=== PATIENT | female | born 1975 | race Caucasian/White ===

== ENCOUNTER 2020-05-03 19:40 | Emergency (ER) | payer BC, SELFPAY ==
--- NOTE | ~2020-05-03 | XR_ITS ---
EXAMINATION: XR chest 1V portable INDICATION: Weakness and headache TECHNIQUE: Portable AP chest at 2019 hours COMPARISON: None available FINDINGS: The lungs are free of acute opacities. There is no pleural effusion or pneumothorax. The ca rdiomediastinal silhouette is normal. IMPRESSION: 1. No acute cardiopulmonary abnormality. Reviewed, dictated and finalized at location A. ONAL DIRECTOR OF ADMISSIONS
[2020-05-03 19:42] VITALS: BP 166/99; PULSE 131; RESP 16; TEMP 36.7; O2SAT 98
--- NOTE | 2020-05-03 19:52 | ECG_ITS ---
Measurements Intervals [place] Rate: 112 P: 60 NV: 149 QRS: 74 QRSD: 77 T: 36 QT: 290 QTc: 397 Interpretive Statements SINUS TACHYCARDIA BASELINE WANDER- V4-V6 ABNORMAL ECG Electronically Signed On 05-04-2020 7:13:47 [employer] by Mello Esparza D.O.
[2020-05-03 20:00] VITALS: PULSE 113
--- NOTE | 2020-05-03 20:08 | ED.GENADULT ---
HPI - General Adult General Chief complaint: Unspecified Stated complaint: palpations, dizzy Time Seen by Provider: 05/03/20 19:53 Source: patient Mode of arrival: ambulatory Limitations: no limitations History of Present Illness HPI narrative: This patient is 44 year old healthy female who presents for evaluation of heart racing and dizziness. She states for the past 4-5 days she has not felt well. She reports intermittent episodes of lightheadedness. This occurs randomly and she states she even feels it while laying down some times. She describes its as fainty . She also reports episodes of heart racing and pounds. She states 5 days ago she had intermittent cramping and diarrhea. She reports her abdominal cramping has resolved. She denies chest pain, cough, sob. She denies fever, chills, body aches or headache. She was evaluated at [facility] ER 2 days ago. She states she was given IVF for dehydration. She had labs performed and she was told they were normal. She has an appointment scheduled with her PCP in 1 week. Onset (ago): day(s) (5) Related Data Allergies Allergy/AdvReac Type Severity Reaction Status Date / Time metoclopramide [From Reglan] AdvReac Irritable Verified 05/03/20 19:55 Review of Systems Review of Systems: All systems reviewed & are unremarkable except as noted in HPI and below Constitutional: Constitutional: Denies chills and Denies fever(s) Cardiovascular: Cardiovascular: Denies chest pain at rest, Denies chest pain with activity, Reports rapid heart rate and Denies leg edema Respiratory: Respiratory: Denies cough and Denies pain on inspiration Gastrointestinal: Gastrointestinal: Reports abdominal pain and Reports diarrhea Psychiatric: Psychiatric: Reports anxiety PMFSH Past Medical History Medical History (Updated 05/04/20 @ 00:04 by Saray Parrish MD) Patient denies medical problems Surgical History Surgical History (Updated 05/04/20 @ 00:04 by Saray Parrish MD) H/O section Social History Social History (Updated 05/04/20 @ 00:04 by Saray Parrish MD) Smoking status: Never smoker Substance use: never Exam Narrative: Exam Narrative: GENERAL: Well-appearing, well-nourished, and in no acute distress. HEAD: Normocephalic, atraumatic EYES: PERRLA and EOMI, conjunctiva clear without discharge EARS: TM's clear bilaterally without erythema or dullness NOSE: Nares clear, no rhinorrhea or epistaxis THROAT:Mucous membranes moist, Oropharynx normal without erythema, exudate, peritonsillar swelling or fluctuance NECK: Supple, without lymphadenopathy or mass RESPIRATORY: No respiratory distress, Airway patent, Respirations non-labored, Clear to auscultation without rales, rhonchi or wheeze HEART: Regular rate and rhythm. No murmur heard. Normal peripheral pulses. ABDOMEN: Soft, nontender, nondistended, normal active bowel sounds. No masses. No rebound or guarding, No organomegaly. EXTREMITIES: No edema, normal strength with full range of motion. SKIN: Warm, dry, normal color without rash NEURO: Alert and oriented x3. CN 2-12 grossly intact. No focal deficits. PSYCH: Normal mood and affect. Course Reevaluation(s) Reevaluation #1: I Discussed with patient that labs are unremarkable. Her hr increasing with position but other gill not orthostatic. I discussed with patient follow up/discharge plan with PCP. She is also concerned about about if her symptoms could be covid. She reports a friend has similar symptoms. Date: 05/03/20 Time: 22:15 Vital Signs Vital signs: Vital Signs Temperature 98.0 F 05/03/20 19:42 Pulse Rate 131 H 05/03/20 19:42 Respiratory Rate 16 05/03/20 19:42 Blood Pressure 166/99 H 05/03/20 19:42 Pulse Oximetry 98 05/03/20 19:42 Temperature 98.0 F 05/03/20 19:42 Pulse Rate 104 H 05/03/20 22:40 Respiratory Rate 12 05/03/20 22:40 Blood Pressure 143/78 H 05/03/20 22:40 Pulse Oximetry 100
[2020-05-03] MEDS: LACTATED RINGERS 1,000 ML 999 ML IV CONT ×2 (20:34→21:58)
[2020-05-03 20:41] LABS: Basophils Absolute Auto 0.1 K/mm3 (0.0-0.1); Basophils Percent Auto 0.7 % (0.2-1.2); Eosinophils Absolute Auto 0.1 K/mm3 (0-0.3); Eosinophils Percent Auto 1.9 % (0-4.4); Hematocrit 40.2 % (37.0-47.0); Hemoglobin 13.9 g/dL (12.0-15.0); Immature Granulocyte Absolute 0.02 K/mm3 (0.00-0.031); Immature Granulocyte Percent A 0.3 % (0-0.5); Lymphocytes Absolute Auto 1.81 K/mm3 (0.9-3.2); Lymphocytes Percent Auto 25.9 % (18.3-44.2); Mean Corpuscular HGB Conc 34.6 g/dl (32-36); Mean Corpuscular Hemoglobin 32.3 pg (26-34); Mean Corpuscular Volume 93.3 fl (80-100); Mean Platelet Volume 10.4 fl (7.4-10.4); Monocytes Absolute Auto 0.6 K/mm3 (0.1-0.6); Neutrophils Absolute Auto 4.3 K/mm3 (1.3-6.7); Neutrophils Percent Auto 62.2 % (45.5-73.1); Platelet Count Result 208 k/mm3 (150-375); Red Blood Count 4.31 M/mm3 (4.2-5.4); Red Cell Distribution Width 11.5 % (11.5-14.5)
[2020-05-03 20:45] LABS: Add Urine Microscopic? YES; Appearance Urine Cloudy (Clear); Bacteria Urine Trace /hpf; Bilirubin Urine Negative (Negative); Blood Urine 1+ (Negative); Color Urine Yellow (Yellow); Glucose Urine UA Negative (Negative); Ketones Urine Negative (Negative); Leukocyte Esterase Ur Negative LEU/UL (Negative); Mucus Urine Rare /lpf; Nitrate Urine Negative (Negative); Protein Urine Negative (Negative); Specific Grav Ur 1.021 (1.001-1.035); Squamous Epithelial Cell Urine Moderate /hpf (Few); Urobilinogen Urine Negative mg/dL (<2.0); WBC Urine 0-3 /hpf
[2020-05-03 20:50] LABS: INR 0.9; Partial Thromboplastin Time 26.9 SECONDS (22.3-36.8); Prothrombin Time 12.7 Seconds (11.1-14.7)
[2020-05-03 20:52] LABS: Lactic Acid Reflex 0.9 mmol/L (0.7-2.1)
[2020-05-03 20:53] LABS: Lipase 112 U/L (23-300); Magnesium 1.9 mg/dL (1.6-2.3)
[2020-05-03 20:56] LABS: Alanine Aminotransferase 24 U/L (4-35); Albumin Level 4.2 g/dL (3.5-5.1); Alkaline Phosphatase 63 U/L (38-126); Anion Gap 4 mmol/L (8-16); Aspartate Amino Transferase 24 U/L (14-36); Bilirubin,Total 0.4 mg/dL (0.2-1.3); Blood Urea Nitrogen 6 mg/dL (7-17); CRP < 0.5 mg/dL (<1.0); Calcium 9.1 mg/dL (8.4-10.2); Carbon Dioxide 24 mmol/L (22-30); Chloride 107 mmol/L (98-107); Estimated CRCL calculation 109 ml/min; Estimated Glomerular Filt Rate > 60; Glucose 104 mg/dL (65-105); Potassium 3.7 mmol/L (3.4-5.0); Sodium 135 mmol/L (137-145)
[2020-05-03 20:59] LABS: D Dimer 0.27 ug/mL (<0.48)
[2020-05-03 21:05] LABS: Troponin I < 0.012 ng/mL (0.000-0.034)
[2020-05-03 21:15] VITALS: BP 140/88; BP 148/89; PULSE 101; PULSE 90
[2020-05-03 21:17] VITALS: BP 147/92; PULSE 107
[2020-05-03 22:22] VITALS: BP 136/84; PULSE 88; RESP 17; O2SAT 100
[2020-05-03 22:40] VITALS: BP 143/78; PULSE 104; RESP 12; O2SAT 100
[2020-05-05 01:27] LABS: SARS-CoV-2 RNA PCR Negative
== END 2020-05-03 22:40 | disposition home or self-care (01) ==
PROVIDERS: Emergency Provider General Practice
DX: R42 Dizziness and giddiness (principal); Z20.822 Contact with and (suspected) exposure to COVID-19; R00.0 Tachycardia, unspecified
CPT/HCPCS: 36415; 71045; 80053; 81001; 81025; 83605; 83690; 83735; 84484; 85025; 85380; 85610; 85730; 86140; 93005; 96360; 96361; 99284; C9803; J7120; U0003; U0005

== ENCOUNTER 2021-05-06 18:59 | Emergency (ER) | payer BC, SELFPAY ==
--- NOTE | ~2021-05-06 | CT_ITS ---
EXAMINATION: CT brain wo con INDICATION: Headache, lightheadedness COMPARISON: None TECHNIQUE: Standard unenhanced head CT. The dose-length product (DLP) was 605.33 mGy-cm. The mA was a djusted according to patient size. Iterative reconstruction technique was employed. FINDINGS: There is no intracranial hemorrhage, acute infarction, or abnormal mass lesion. The ventric les are normal. There is no abnormal mass effect or midline shift. The curry-white matter differentiat ion is normal. The basal cisterns are patent. The orbits are normal. The paranasal sinuses, mastoids and calvarium are normal. IMPRESSION: 1. No acute intracranial abnormality. Reviewed, dictated and finalized at location F. [employer]CH PROGRAM MANAGER
[2021-05-06 19:02] VITALS: BP 154/76; PULSE 120; RESP 14; TEMP 36.7; O2SAT 100
--- NOTE | 2021-05-06 19:40 | ED.GENADULT ---
HPI - General Adult General Chief complaint: Headache Stated complaint: lightheaded and headache Time Seen by Provider: 05/06/21 19:25 History of Present Illness HPI narrative: Patient 45-year-old female presents the emergency department with chief complaint of not feeling well. Patient reports that she started having a headache several days ago and has had a lightheaded uncomfortable feeling. The patient states is worse whenever she turns her head from side to side reports that she feels as though she may be dehydrated. Patient states that she has no other medical conditions. Patient reports that she has been vaccinated and has been boosted for COVID-19. Related Data Allergies Allergy/AdvReac Type Severity Reaction Status Date / Time metoclopramide [From Reglan] AdvReac Irritable Verified 05/03/20 19:55 Review of Systems Review of Systems: A 10 system review of systems was completed on the patient and is negative except for what is stated in the HPI. Nursing and ancillary documentation was reviewed. PMFSH Past Medical History Medical History Patient denies medical problems Surgical History Surgical History H/O section Social History Social History Smoking status: Never smoker Substance use: never Exam Narrative: GENERAL: Well-appearing, well-nourished, and in no acute distress. HEAD: Normocephalic, atraumatic. EYES: PERRLA and EOMI. ENT: Nares clear, no rhinorrhea or epistaxis. Mucous membranes moist. NECK: Supple. CHEST: Clear to auscultation. No respiratory distress. HEART: Regular rate and rhythm. No murmur heard. Normal peripheral pulses. ABDOMEN: Soft, nontender, nondistended, normal active bowel sounds. EXTREMITIES: Normal range of motion. No edema. SKIN: Warm, dry, no rash. NEURO: No focal deficits. Alert and oriented x3. PSYCH: Normal mood and affect. Course Vital Signs Vital signs: Vital Signs Temperature 36.7 C 05/06/21 19:02 Pulse Rate 120 H 05/06/21 19:02 Respiratory Rate 14 05/06/21 19:02 Blood Pressure 154/76 H 05/06/21 19:02 Pulse Oximetry 100 05/06/21 19:02 Temperature 36.7 C 05/06/21 19:02 Pulse Rate 120 H 05/06/21 19:02 Respiratory Rate 14 05/06/21 19:02 Blood Pressure 154/76 H 05/06/21 19:02 Pulse Oximetry 100 05/06/21 19:02 Medical Decision Making Vital Signs Vital Signs: Vital Signs Temperature 36.7 C 05/06/21 19:02 Pulse Rate 120 H 05/06/21 19:02 Respiratory Rate 14 05/06/21 19:02 Blood Pressure 154/76 H 05/06/21 19:02 Pulse Oximetry 100 05/06/21 19:02 Temperature 36.7 C 05/06/21 19:02 Pulse Rate 120 H 05/06/21 19:02 Respiratory Rate 14 05/06/21 19:02 Blood Pressure 154/76 H 05/06/21 19:02 Pulse Oximetry 100 05/06/21 19:02 Lab Data Result diagrams: 05/06/21 20:04 05/06/21 20:04 Labs: Lab Results 05/06/21 05/06/21 05/06/21 Range/Units 20:04 20:04 20:16 WBC 8.9 (4.5-10.0) K/mm3 RBC 4.43 (4.2-5.4) M/mm3 Hgb 14.4 (12.0-15.0) g/dL Hct 40.3 (37.0-47.0) % MCV 91.0 (80-100) fl MCH 32.5 (26-34) pg MCHC 35.7 (32-36) g/dl RDW 11.5 (11.5-14.5) % Plt Count 273 (150-375) k/mm3 MPV 10.3 (7.4-10.4) fl Immature Gran % (Auto) 0.1 (0-0.5) % Neut % (Auto) 58.6 (45.5-73.1) % Lymph % (Auto) 29.6 (18.3-44.2) % [place] % (Auto) 7.3 (2.6-8.5) % Eos % (Auto) 3.7 (0-4.4) % Baso % (Auto) 0.7 (0.2-1.2) % Lymph # (Auto) 2.64 (0.9-3.2) K/mm3 [place] # (Auto) 0.7 H (0.1-0.6) K/mm3 Eos # (Auto) 0.3 (0-0.3) K/mm3 Baso # (Auto) 0.1 (0.0-0.1) K/mm3 Abs Immat Gran (auto) 0.01 (0.00-0.031) K/mm3 Absolute Neuts (auto) 5.2 (1.3-6.7) K/mm3 Absolute Nucleated RBC 0.0 (0.0-0.012) K/mm3 Nucleat
[2021-05-06] MEDS: SODIUM CHLORIDE 0.9% IV 1,000 ML 999 ML IV CONT ×2 (20:09→21:44)
[2021-05-06] MEDS: diphenhydrAMINE HCl INJ 50 MG/ML VIAL IV PUSH (20:10)
[2021-05-06] MEDS: PROCHLORPERAZINE EDISYLATE 10 MG/2 ML VIAL IV PUSH (20:10)
[2021-05-06] MEDS: SODIUM CHLORIDE 0.9% IV 100 ML 500 ML (20:11)
[2021-05-06 20:27] LABS: Basophils Absolute Auto 0.1 K/mm3 (0.0-0.1); Basophils Percent Auto 0.7 % (0.2-1.2); Eosinophils Absolute Auto 0.3 K/mm3 (0-0.3); Eosinophils Percent Auto 3.7 % (0-4.4); Hematocrit 40.3 % (37.0-47.0); Hemoglobin 14.4 g/dL (12.0-15.0); Immature Granulocyte Absolute 0.01 K/mm3 (0.00-0.031); Immature Granulocyte Percent A 0.1 % (0-0.5); Lymphocytes Absolute Auto 2.64 K/mm3 (0.9-3.2); Lymphocytes Percent Auto 29.6 % (18.3-44.2); Mean Corpuscular HGB Conc 35.7 g/dl (32-36); Mean Corpuscular Hemoglobin 32.5 pg (26-34); Mean Platelet Volume 10.3 fl (7.4-10.4); Monocytes Absolute Auto 0.7 K/mm3 (0.1-0.6); Monocytes Percent Auto 7.3 % (2.6-8.5); Neutrophils Absolute Auto 5.2 K/mm3 (1.3-6.7); Neutrophils Percent Auto 58.6 % (45.5-73.1); Platelet Count Result 273 k/mm3 (150-375); Red Blood Count 4.43 M/mm3 (4.2-5.4); Red Cell Distribution Width 11.5 % (11.5-14.5); White Blood Count 8.9 K/mm3 (4.5-10.0)
[2021-05-06 20:35] LABS: Add Urine Microscopic? YES; Appearance Urine Clear (Clear); Bacteria Urine Trace /hpf; Bilirubin Urine Negative (Negative); Blood Urine 1+ (Negative); Color Urine Straw (Yellow); Glucose Urine UA Negative (Negative); Ketones Urine Trace mg/dL (Negative); Leukocyte Esterase Ur Negative LEU/UL (Negative); Mucus Urine Rare /lpf; Nitrate Urine Negative (Negative); Protein Urine Negative (Negative); RBC Urine 0-2 /hpf (0-2); Specific Grav Ur 1.006 (1.001-1.035); Squamous Epithelial Cell Urine Moderate /hpf (Few); Urobilinogen Urine Negative mg/dL (<2.0); WBC Urine 0-3 /hpf
[2021-05-06 20:36] LABS: Alanine Aminotransferase 27 U/L (4-35); Albumin Level 4.6 g/dL (3.5-5.1); Alkaline Phosphatase 89 U/L (38-126); Anion Gap 12 mmol/L (8-16); Aspartate Amino Transferase 28 U/L (14-36); Bilirubin,Total 0.8 mg/dL (0.2-1.3); Blood Urea Nitrogen 14 mg/dL (7-17); Calcium 9.5 mg/dL (8.4-10.2); Carbon Dioxide 22 mmol/L (22-30); Chloride 100 mmol/L (98-107); Estimated CRCL calculation 94 ml/min; Estimated Glomerular Filt Rate > 60; Glucose 104 mg/dL (65-110); Potassium 3.3 mmol/L (3.4-5.0); Sodium 134 mmol/L (137-145)
[2021-05-06] MEDS: POTASSIUM CHLORIDE 20 MEQ TABLET 40 MEQ PO (21:33)
[2021-05-06] MEDS: diazePAM INJ (*CRX) 10 MG/2 ML SYRINGE 5 MG IV PUSH (21:44)
[2021-05-06] MEDS: MECLIZINE HCL 25 MG TABLET PO (21:44)
[2021-05-07] VITALS: BP 132/90; PULSE 89; RESP 18; O2SAT 100
== END 2021-05-07 | disposition home or self-care (01) ==
PROVIDERS: Emergency Provider Emergency Medicine; PCP Family Medicine
DX: R51.9 Headache, unspecified (principal); R42 Dizziness and giddiness; E86.0 Dehydration
CPT/HCPCS: 36415; 70450; 80053; 81001; 81025; 85025; 96361; 96374; 96375; 99284; A9270; J0780; J1200; J3360; J7030